=== PATIENT | male | born 1940 | race Two or more races ===

== ENCOUNTER 2017-06-07 21:41 | Inpatient (IN) | payer MEDICARE, OTHER ==
[~2017-06-07] VITALS: Ht 167.6 cm; Wt 59.0 kg
[2017-06-07] MEDS ORDERED: Morphine Sulfate 2mg/ml Inj IVP ONE (22:00)
[2017-06-07] MEDS ORDERED: Ipratropium 0.02% Inh Soln 2.5ml UD HHN ONE (22:00)
[2017-06-07] MEDS ORDERED: Albuterol ud Inhalation HHN ONE (22:00)
[2017-06-07] MEDS ORDERED: Nitroglycerin 2% oint pkt TOPIC ONE (22:00)
[2017-06-07 22:27] LABS: MEAN CORPUSCULAR HEMOGLOBIN 29.7 PG (27.0-31.0); MEAN CORPUSCULAR HGB CONC 32.6 G/DL (32.0-36.0); MEAN CORPUSCULAR VOLUME 91 FL (80-99); MEAN PLATELET VOLUME 12.2 FL (6.5-10.1); PLATELET COUNT 98 K/UL (150-450); RED BLOOD COUNT 4.34 M/UL (4.70-6.10); RED CELL DISTRIBUTION WIDTH 14.3 % (11.6-14.8); WHITE BLOOD COUNT 7.7 K/UL (4.8-10.8)
[2017-06-07 22:28] LABS: PROTHROMBIN TIME 10.4 SEC (9.30-11.50)
[2017-06-07 22:33] LABS: ALANINE AMINOTRANSFERASE 9 U/L (3-41); ALBUMIN/GLOBULIN RATIO 1.5 (1.0-2.7); ANION GAP 6 (5-15); ASPARTATE AMINO TRANSFERASE 14 U/L (5-40); CALCIUM 8.8 mg/dL (8.6-10.2); CARBON DIOXIDE 33 mEQ/L (20-30); CHLORIDE 102 mEQ/L (98-107); HEMOLYSIS 4; POTASSIUM 5.1 mEQ/L (3.4-4.9); SODIUM 141 mEQ/L (135-145); TOTAL PROTEIN 6.5 g/dL (6.6-8.7); TROPONIN I < 0.30 ng/mL (<=0.30)
[2017-06-07] MEDS ORDERED: DEXILANT60 MG ORAL (22:45)
[2017-06-07] MEDS ORDERED: LEXAPRO20 MG ORAL (22:45)
[2017-06-07] MEDS ORDERED: TRAMADOL HCL50 MG ORAL (22:45)
[2017-06-07] MEDS ORDERED: ADVAIR 250-501 EACH INH (22:45)
[2017-06-07] MEDS ORDERED: COLACE100 MG ORAL (22:45)
[2017-06-07 23:05] LABS: BASOPHILS % (MANUAL) 1 % (0-2); EOSINOPHILS % (MANUAL) 2 % (0-3); LYMPHOCYTES % (MANUAL) 23 % (20-45); NEUTROPHILS % (MANUAL) 69 % (45-75); PLATELET MORPHOLOGY NORMAL; TOTAL CELLS COUNTED 100
[2017-06-07 23:06] LABS: BAND NEUTROPHILS % (MANUAL) 0 % (0-8); PLATELET ESTIMATE DECREASED
[2017-06-07] MEDS ORDERED: Nitroglycerin Subl 0.4mg tab (Bottle Of 25) SL PRN (23:30)
[2017-06-07] MEDS ORDERED: DuoNeb 0.5-3(2.5)mg/3ml neb HHN PRN (23:30)
[2017-06-07 23:39] VITALS: BP 120/68
[2017-06-08 00:45] VITALS: BP 106/61
[2017-06-08] MEDS: Morphine Sulfate 4mg/ml Inj IVP PRN ×3 (00:56→18:57)
[2017-06-08 01:00] VITALS: BP 106/55
--- NOTE | 2017-06-08 04:07 | Emergency Room Report ---
History of Present Illness General Chief Complaint: Chest Pain Source: Patient, Family Member Present Illness HPI Patient presents with left-sided chest pain. It's poorly described. He's unable to say anything other than it is painful. The pain is 8-9/10. It's constant and somewhat worse with exertion. It is also worse when he lays down flat. He says he has trouble catching his breath. He does have a history of using inhalers in the past and smoking. He does not have an inhaler at this time. He's heard himself wheezing. Denies any fevers or productive cough. The patient's risk factors of smoking. Alleged prior CAD. No NVD, dysuria, rashes, headache, joint pain. Some anxiety associated with dyspnea and CP. Allergies: Coded Allergies: No Known Allergies (Unverified , 06/07/17) Patient History Past Medical History: see triage record Social History: Reports: smoking Social History Narrative with grandson Reviewed Nursing Documentation: PMH: Agreed, PSxH: Agreed Nursing Documentation-PMH Past Medical History: No History, Except For Hx Cardiac Problems: Yes Hx Hypertension: Yes Hx Pacemaker: No Hx Asthma: No Hx COPD: No Hx Diabetes: No Hx Cancer: No Hx Gastrointestinal Problems: Yes Hx Dialysis: No History Of Psychiatric Problem: No Hx Neurological Problems: Yes Hx Cerebrovascular Accident: No Hx Seizures: No Review of Systems All Other Systems: negative except mentioned in HPI Physical Exam Vital Signs Date Time Temp Pulse Resp B/P Pulse Ox O2 Delivery O2 Flow Rate FiO2 06/07/17 21:50 98.2 86 16 160/80 98 Room Air 06/07/17 21:57 3.0 32 Sp02 EP Interpretation: reviewed, normal General Appearance: well appearing, GCS 15, mild distress Head: normocephalic Eyes: bilateral eye PERRL, bilateral eye normal inspection ENT: moist mucus membranes Neck: supple Respiratory: no accessory muscle use, wheezing, expiration Cardiovascular #1: regular rate, rhythm Cardiovascular #2: 2+ radial (R) Gastrointestinal: normal inspection, normal bowel sounds, non tender, no mass, non-distended, scaphoid Musculoskeletal: back normal, gait/station normal, normal range of motion Neurologic: alert, oriented x3, grossly normal Psychiatric: anxious Skin: normal inspection, warm/dry Medical Decision Making Diagnostic Impression: Primary Impression: Chest pain Qualified Codes: R07.89 - Other chest pain Additional Impression: Bronchospasm ER Course The patient presents with chest pain. He is a poor historian and can't characterize the pain. Reported severe. His risk factors of prior CAD and smoking. The family deny that he's had any previous cardiac procedures. The patient needs to have evaluation for acute myocardial infarction, acute coronary syndrome, pneumonia, COPD exacerbation, pneumothorax amongst others. Evaluation will be with EKG, chest x-ray and labs. The patient will be given aspirin, nitroglycerin, morphine and will be treated with albuterol. EKG without ischemia. CXR with COPD. Labs with negative troponin. Initial improvement with albuterol and nitrates. Patient needs observation with continued troponins and treatment with bronchodilators. Complex patient with poor history. Admit telemetry Dr. Almendarez. Discussed with Dr. Elizondo. (Unable to reach Dr. Negron.) Before going upstairs the patient states pain started to come back again. Morphine was ordered again however due to some technical difficulty with the pharmacy was not administered. Laboratory Tests Test 06/07/17 22:00 White Blood Count 7.7 K/UL (4.8-10.8) Red Blood Count 4.34 M/UL (4.70-6.10) L Hemoglobin 12.9 G/DL (14.2-18.0) L Hematocrit 39.5 % (42.0-52.0) L Mean Corpuscular Volume 91 FL (80-99) Mean Corpuscular Hemoglobin 29.7 PG (27.0-31.0) Mean Corpuscular Hemoglobin Concent 32.6 G/DL (32.0-36.0) Red Cell Distribution Width 14.3 % (11.6-14.8) Platelet Count 98 K/UL (150-450) L Mean Platelet Volume 12.2 FL (6.5-10.1) H Neutrophils (%) (Auto) % (45.0-75.0) Lymphocytes (%) (Auto) % (20.0-45.0) Monocytes (%) (Auto) % (1.0-10.0) Eosinophils (%) (Auto) % (0.0-3.0) Basophils (%) (Auto) % (0.0-2.0) Differential Total Cells Counted 100 Neutrophils % (Manual) 69 % (45-75) Lymphocytes % (Manual) 23 % (20-45) Monocytes % (Manual) 5 % (1-10) Eosinophils % (Manual) 2 % (0-3) Basophils % (Manual) 1 % (0-2) Band Neutrophils 0 % (0-8) Platelet Estimate Decreased L Platelet Morphology Normal Red Blood Cell Morphology Normal Prothrombin Time 10.4 SEC (9.30-11.50) Prothrombin Time INR 1.0 (0.9-1.1) PTT 27 SEC (23-33) Sodium Level 141 mEQ/L (135-145) Potassium Level 5.1 mEQ/L (3.4-4.9) H Chloride Level 102 mEQ/L (98-107) Carbon Dioxide Level 33 mEQ/L (20-30) H Anion Gap 6 (5-15) Blood Urea Nitrogen 29 mg/dL (7-23) H Creatinine 1.0 mg/dL (0.7-1.2) Estimate Glomerular Filtration Rate mL/min (>60) Glucose Level 102 mg/dL (74-106) Calcium Level 8.8 mg/dL (8.6-10.2) Total Bilirubin 0.3 mg/dL (0.0-1.2) Aspartate Amino Transferase (AST) 14 U/L (5-40) Alanine Aminotransferase (ALT) 9 U/L (3-41) Alkaline Phosphatase 45 U/L (40-129) Total Creatine Kinase 74 U/L (38-174) Troponin I < 0.30 ng/mL (<=0.30) Pro-B-Type Natriuretic Peptide 190 pg/mL (0-450) Total Protein 6.5 g/dL (6.6-8.7) L Albumin 3.9 g/dL (3.5-5.2) Globulin 2.6 g/dL Albumin/Globulin Ratio 1.5 (1.0-2.7) EKG Diagnostic Results Rate: bradycardiac ST Segments: no acute changes - RBBB Rhythm Strip Diag. Results EP Interpretation: yes Rhythm: no PVC's, no ectopy, other - Bradycardia Chest X-Ray Diagnostic Results Chest X-Ray Diagnostic Results : Chest X-Ray Ordered: Yes # of Views/Limited/Complete: 1 View Indication: Chest Pain EP Interpretation: Yes Interpretation: no consolidation, no effusion, no pneumothorax, other - COPD Impression: Other Interpreting ER Provider: Electronically signed by Esteban Mock MD Last Vital Signs Date Time Temp Pulse Resp B/P Pulse Ox O2 Delivery O2 Flow Rate FiO2 06/08/17 01:26 97.5 06/08/17 01:03 56 17 106/61 98 Room Air 3.0 32 Status: improved Disposition: ADMITTED INPATIENT Condition: Serious Referrals: NON PHYSICIAN (PCP) Esteban Mock M.D. Jun 08, 2017 04:07
[2017-06-08 07:29] LABS: MEAN CORPUSCULAR HEMOGLOBIN 30.7 PG (27.0-31.0); MEAN CORPUSCULAR HGB CONC 33.4 G/DL (32.0-36.0); MEAN CORPUSCULAR VOLUME 92 FL (80-99); MEAN PLATELET VOLUME 11.2 FL (6.5-10.1); PLATELET COUNT 84 K/UL (150-450); RED BLOOD COUNT 4.03 M/UL (4.70-6.10); RED CELL DISTRIBUTION WIDTH 14.4 % (11.6-14.8); WHITE BLOOD COUNT 6.8 K/UL (4.8-10.8)
[2017-06-08 07:33] LABS: TROPONIN I < 0.30 ng/mL (<=0.30)
[2017-06-08 07:38] LABS: ANION GAP 5 (5-15); CALCIUM 8.5 mg/dL (8.6-10.2); CARBON DIOXIDE 33 mEQ/L (20-30); CHLORIDE 104 mEQ/L (98-107); CREATININE 0.9 mg/dL (0.7-1.2); HEMOLYSIS 6; POTASSIUM 4.3 mEQ/L (3.4-4.9); SODIUM 142 mEQ/L (135-145)
[2017-06-08] MEDS: Aspirin Baby 81mg ORAL SCH (08:31)
[2017-06-08 08:39] LABS: EOSINOPHILS % (MANUAL) 5 % (0-3); LYMPHOCYTES % (MANUAL) 28 % (20-45); NEUTROPHILS % (MANUAL) 62 % (45-75); TOTAL CELLS COUNTED 100
[2017-06-08 08:40] LABS: ANISOCYTOSIS 1+; BAND NEUTROPHILS % (MANUAL) 0 % (0-8); BASOPHILS % (MANUAL) 0 % (0-2); PLATELET ESTIMATE DECREASED; PLATELET MORPHOLOGY NORMAL
[2017-06-08 08:54] VITALS: BP 125/65
--- NOTE | 2017-06-08 09:01 | Cardiac Electrophysiology PN ---
Subjective Subjective [id number] Objective Last 24 Hour Vital Signs Date Time Temp Pulse Resp B/P Pulse Ox O2 Delivery O2 Flow Rate FiO2 06/08/17 08:54 97.9 54 19 125/65 97 Room Air 06/08/17 04:00 45 06/08/17 01:26 97.5 06/08/17 01:03 97.5 56 17 106/61 98 Room Air 3.0 32 06/08/17 01:00 97.8 55 14 106/55 97 Room Air 06/08/17 00:45 56 17 106/61 98 Room Air 06/07/17 23:39 97.5 56 17 120/68 99 Room Air 06/07/17 22:51 98.2 06/07/17 22:12 60 21 100 Nasal Cannula 3.0 32 06/07/17 22:12 169/67 06/07/17 22:00 63 20 Nasal Cannula 3.0 32 06/07/17 21:57 63 20 100 Nasal Cannula 3.0 32 06/07/17 21:57 61 20 Nasal Cannula 3.0 32 06/07/17 21:50 98.2 86 16 160/80 98 Room Air Intake and Output 06/07/17 06/08/17 19:00 07:00 Output Total 0 ml Balance 0 ml Output Urine Total 0 ml # Voids 1 Laboratory Tests Test 06/07/17 22:00 06/08/17 06:40 White Blood Count 7.7 K/UL (4.8-10.8) 6.8 K/UL (4.8-10.8) Red Blood Count 4.34 M/UL (4.70-6.10) L 4.03 M/UL (4.70-6.10) L Hemoglobin 12.9 G/DL (14.2-18.0) L 12.4 G/DL (14.2-18.0) L Hematocrit 39.5 % (42.0-52.0) L 37.1 % (42.0-52.0) L Mean Corpuscular Volume 91 FL (80-99) 92 FL (80-99) Mean Corpuscular Hemoglobin 29.7 PG (27.0-31.0) 30.7 PG (27.0-31.0) Mean Corpuscular Hemoglobin Concent 32.6 G/DL (32.0-36.0) 33.4 G/DL (32.0-36.0) Red Cell Distribution Width 14.3 % (11.6-14.8) 14.4 % (11.6-14.8) Platelet Count 98 K/UL (150-450) L 84 K/UL (150-450) L Mean Platelet Volume 12.2 FL (6.5-10.1) H 11.2 FL (6.5-10.1) H Neutrophils (%) (Auto) % (45.0-75.0) % (45.0-75.0) Lymphocytes (%) (Auto) % (20.0-45.0) % (20.0-45.0) Monocytes (%) (Auto) % (1.0-10.0) % (1.0-10.0) Eosinophils (%) (Auto) % (0.0-3.0) % (0.0-3.0) Basophils (%) (Auto) % (0.0-2.0) % (0.0-2.0) Differential Total Cells Counted 100 100 Neutrophils % (Manual) 69 % (45-75) 62 % (45-75) Lymphocytes % (Manual) 23 % (20-45) 28 % (20-45) Monocytes % (Manual) 5 % (1-10) 5 % (1-10) Eosinophils % (Manual) 2 % (0-3) 5 % (0-3) H Basophils % (Manual) 1 % (0-2) 0 % (0-2) Band Neutrophils 0 % (0-8) 0 % (0-8) Platelet Estimate Decreased L Decreased L Platelet Morphology Normal Normal Red Blood Cell Morphology Normal Prothrombin Time 10.4 SEC (9.30-11.50) Prothromb Time International Ratio 1.0 (0.9-1.1) Activated Partial Thromboplast Time 27 SEC (23-33) Sodium Level 141 mEQ/L (135-145) 142 mEQ/L (135-145) Potassium Level 5.1 mEQ/L (3.4-4.9) H 4.3 mEQ/L (3.4-4.9) Chloride Level 102 mEQ/L (98-107) 104 mEQ/L (98-107) Carbon Dioxide Level 33 mEQ/L (20-30) H 33 mEQ/L (20-30) H Anion Gap 6 (5-15) 5 (5-15) Blood Urea Nitrogen 29 mg/dL (7-23) H 28 mg/dL (7-23) H Creatinine 1.0 mg/dL (0.7-1.2) 0.9 mg/dL (0.7-1.2) Estimat Glomerular Filtration Rate mL/min (>60) mL/min (>60) Glucose Level 102 mg/dL (74-106) 90 mg/dL (74-106) Calcium Level 8.8 mg/dL (8.6-10.2) 8.5 mg/dL (8.6-10.2) L Total Bilirubin 0.3 mg/dL (0.0-1.2) Aspartate Amino Transf (AST/SGOT) 14 U/L (5-40) Alanine Aminotransferase (ALT/SGPT) 9 U/L (3-41) Alkaline Phosphatase 45 U/L (40-129) Total Creatine Kinase 74 U/L (38-174) Troponin I < 0.30 ng/mL (<=0.30) < 0.30 ng/mL (<=0.30) Pro-B-Type Natriuretic Peptide 190 pg/mL (0-450) Total Protein 6.5 g/dL (6.6-8.7) L Albumin 3.9 g/dL (3.5-5.2) Globulin 2.6 g/dL Albumin/Globulin Ratio 1.5 (1.0-2.7) Anisocytosis 1+ OSVALDO ANDERSON Jun 08, 2017 09:01
[2017-06-08] MEDS: D5 1/2NS 1,000 ML IV SCH (11:28)
[2017-06-08 11:56] VITALS: BP 124/66
[2017-06-08] MEDS ORDERED: Potassium Chloride 10 MEQ in D5 1/2NS 1,000 ML IV SCH (12:00)
--- NOTE | 2017-06-08 12:30 | Consultation ---
DATE OF CONSULTATION: 06/08/2017 CARDIOLOGY CONSULTATION REFERRING PHYSICIAN: Isi Almendarez M.D. REASON FOR CONSULTATION: Chest pain. HISTORY OF PRESENT ILLNESS: The patient is a very pleasant 76-year-old [place] gentleman with a history of hypertension. He is not taking any medication currently and presented through the emergency room with left-sided chest pain. The patient also stated that it is worse when he swallows food. The patient is usually under the care of and states that he has had regular echocardiogram and stress test in the past, but not recently. The patient was admitted and noted to be bradycardic with heart rate dropped as low as 44. Cardiology consultation was obtained for further evaluation and management. PAST MEDICAL HISTORY: 1. Hypertension. 2. Arthritis. FAMILY HISTORY: Noncontributory. SOCIAL HISTORY: He lives at home. Does not smoke or drink alcohol. REVIEW OF SYSTEMS: Review of system was performed and was negative other than what was mentioned in the history of present illness. PHYSICAL EXAMINATION: VITAL SIGNS: Blood pressure 160/80, pulse 80, respirations 16, and temperature 98.2 degrees. NECK: Shows no JVD. LUNGS: Clear. CARDIOVASCULAR: Shows regular S1 and S2 with no gallop or murmur. Slightly bradycardic. ABDOMEN: Soft. EXTREMITIES: No pitting edema. DIAGNOSTIC DATA: His EKG showed sinus bradycardia at a rate of 45 with bundle-branch block. LABORATORY DATA: White count 6.8, hemoglobin 12.4, hematocrit 37.1, and platelet count of 84,000. Sodium 142, potassium 4.3, BUN 28, creatinine 0.9, and glucose 90. His troponins are negative x2. BNP is 190. ASSESSMENT AND PLAN: 1. Atypical chest pain. The patient was ruled out for myocardial infarction with serial cardiac enzymes. We will get an echocardiogram to evaluate for ejection fraction and wall motion abnormality and is scheduled the patient for nuclear stress test. Also in view of her worsening pain with food, the patient likely would need esophagogastroduodenoscopy for further evaluation. 2. Hypertension. antihypertensive agent at this time. 3. Bradycardia. Heart rate is in the 40s. sharif. We will check thyroid function tests. 4. Dysphagia, GI evaluation is pending. Thank very much, Dr. Almendarez, for allowing me to participate in the care of this patient. Please do not hesitate to contact me for any questions regarding my evaluation. Олег Obrien M.D. DR: COBY JOB#: [id number] CC:
--- NOTE | 2017-06-08 12:33 | Diagnostic Imaging Report ---
Indication: Dyspnea Comparison: None A single view chest radiograph was obtained. Findings: No definite infiltrate or pulmonary vascular congestion identified. The heart is enlarged. The aorta is mildly enlarged consistent with atherosclerotic vascular disease. The bones are osteopenic. Impression: No acute disease
--- NOTE | 2017-06-08 13:23 | History and Physical ---
History of Present Illness General Date patient seen: Jun 08, 2017 Time patient seen: 13:23 Reason for Hospitalization: Chest Pain Present Illness HPI 76y/o male with pmh of HTN, COPD, depression, GERD who presents with chest pain. Pt states that yesterday he developed severe substernal and L sided chest pain. He is unable to clearly characterize it. He does note that it has a somewhat pleuritic component and is also worsened w/ eating. It is not worsened w/ activity. Associated w/ some SOB. Denies f/c, n/v, d/c, dysuria. Also notes some epigastric pain. Pt also c/o difficulty swallowing liquids and solids as well as pain w/ swallowing for a few days to weeks, gradually worsening. Last EGD/colo >10years ago. H/o tobacco use but denies current use. Denies recent COPD exacerbation. Allergies: Coded Allergies: No Known Allergies (Unverified , 06/07/17) Medication History Scheduled Dexlansoprazole (Dexilant), 60 MG ORAL DAILY, (Reported) Docusate Sodium* (Colace*), 100 MG ORAL DAILY, (Reported) Escitalopram Oxalate* (Lexapro*), 20 MG ORAL DAILY, (Reported) Fluticasone/Salmeterol (Advair 250-50 Diskus), 1 PUFF INH EVERY 12 HOURS, ( Reported) Scheduled PRN Tramadol Hcl* (Ultram*), 100 MG ORAL Q6H PRN for For Pain, (Reported) Patient History Healthcare decision maker Resuscitation status Chemical (Meds Only) Advanced Directive on File No Past Medical/Surgical History Past Medical/Surgical History: (1) COPD (chronic obstructive pulmonary disease) (2) GERD (gastroesophageal reflux disease) (3) Depression (4) HTN (hypertension) Family History Family History: Patient reports no known family medical history. Social History Social History: (1) H/o tobacco abuse Review of Systems Constitutional: Reports: no symptoms Eye: Reports: no symptoms ENT: Reports: no symptoms Respiratory: Reports: shortness of breath Cardiovascular: Reports: chest pain Gastrointestinal: Reports: other - epigastric pain, dysphagia, odynophagia Genitourinary: Reports: no symptoms Musculoskeletal: Reports: no symptoms Skin: Reports: no symptoms Psychiatric: Reports: no symptoms Neurological: Reports: no symptoms Endocrine: Reports: no symptoms Hematologic/Lymphatic: Reports: no symptoms Physical Exam Physical Exam Narrative General: alert, cooperative, no distress, appears stated age Head: normocephalic, without obvious abnormality, atraumatic Eyes: conjunctivae/corneas clear. PERRL, EOM's intact Throat: lips, mucosa, and tongue normal. MMM Neck: supple, symmetrical, trachea midline, and no JVD Lungs: clear to auscultation bilaterally Heart: regular rate and rhythm, S1, S2 normal, no murmur, click, rub or gallop Abdomen: soft, non-tender, non-distended, bowel sounds normal; no masses or organomegaly Extremities: extremities normal, atraumatic, no cyanosis or edema Pulses: 2+ and symmetric Skin: skin color, texture, turgor normal; no rashes or lesions Neurologic: grossly normal, no focal deficits Last 24 Hour Vital Signs Date Time Temp Pulse Resp B/P Pulse Ox O2 Delivery O2 Flow Rate FiO2 06/08/17 11:56 97.7 58 20 124/66 98 Room Air 06/08/17 08:54 97.9 54 19 125/65 97 Room Air 06/08/17 08:30 55 20 Nasal Cannula 3.0 32 06/08/17 08:00 45 06/08/17 04:00 45 06/08/17 01:26 97.5 06/08/17 01:03 97.5 56 17 106/61 98 Room Air 3.0 32 06/08/17 01:00 97.8 55 14 106/55 97 Room Air 06/08/17 00:45 56 17 106/61 98 Room Air 06/07/17 23:39 97.5 56 17 120/68 99 Room Air 06/07/17 22:51 98.2 06/07/17 22:12 60 21 100 Nasal Cannula 3.0 32 06/07/17 22:12 169/67 06/07/17 22:00 63 20 Nasal Cannula 3.0 32 06/07/17 21:57 63 20 100 Nasal Cannula 3.0 32 06/07/17 21:57 61 20 Nasal Cannula 3.0 32 06/07/17 21:50 98.2 86 16 160/80 98 Room Air Intake and Output 06/07/17 06/08/17 19:00 07:00 Output Total 0 ml Balance 0 ml Output Urine Total 0 ml # Voids 1 Laboratory Tests Test 06/07/17 22:00 06/08/17 06:40 White Blood Count 7.7 K/UL (4.8-10.8) 6.8 K/UL (4.8-10.8) Red Blood Count 4.34 M/UL (4.70-6.10) L 4.03 M/UL (4.70-6.10) L Hemoglobin 12.9 G/DL (14.2-18.0) L 12.4 G/DL (14.2-18.0) L Hematocrit 39.5 % (42.0-52.0) L 37.1 % (42.0-52.0) L Mean Corpuscular Volume 91 FL (80-99) 92 FL (80-99) Mean Corpuscular Hemoglobin 29.7 PG (27.0-31.0) 30.7 PG (27.0-31.0) Mean Corpuscular Hemoglobin Concent 32.6 G/DL (32.0-36.0) 33.4 G/DL (32.0-36.0) Red Cell Distribution Width 14.3 % (11.6-14.8) 14.4 % (11.6-14.8) Platelet Count 98 K/UL (150-450) L 84 K/UL (150-450) L Mean Platelet Volume 12.2 FL (6.5-10.1) H 11.2 FL (6.5-10.1) H Neutrophils (%) (Auto) % (45.0-75.0) % (45.0-75.0) Lymphocytes (%) (Auto) % (20.0-45.0) % (20.0-45.0) Monocytes (%) (Auto) % (1.0-10.0) % (1.0-10.0) Eosinophils (%) (Auto) % (0.0-3.0) % (0.0-3.0) Basophils (%) (Auto) % (0.0-2.0) % (0.0-2.0) Differential Total Cells Counted 100 100 Neutrophils % (Manual) 69 % (45-75) 62 % (45-75) Lymphocytes % (Manual) 23 % (20-45) 28 % (20-45) Monocytes % (Manual) 5 % (1-10) 5 % (1-10) Eosinophils % (Manual) 2 % (0-3) 5 % (0-3) H Basophils % (Manual) 1 % (0-2) 0 % (0-2) Band Neutrophils 0 % (0-8) 0 % (0-8) Platelet Estimate Decreased L Decreased L Platelet Morphology Normal Normal Red Blood Cell Morphology Normal Prothrombin Time 10.4 SEC (9.30-11.50) Prothromb Time International Ratio 1.0 (0.9-1.1) Activated Partial Thromboplast Time 27 SEC (23-33) Sodium Level 141 mEQ/L (135-145) 142 mEQ/L (135-145) Potassium Level 5.1 mEQ/L (3.4-4.9) H 4.3 mEQ/L (3.4-4.9) Chloride Level 102 mEQ/L (98-107) 104 mEQ/L (98-107) Carbon Dioxide Level 33 mEQ/L (20-30) H 33 mEQ/L (20-30) H Anion Gap 6 (5-15) 5 (5-15) Blood Urea Nitrogen 29 mg/dL (7-23) H 28 mg/dL (7-23) H Creatinine 1.0 mg/dL (0.7-1.2) 0.9 mg/dL (0.7-1.2) Estimat Glomerular Filtration Rate mL/min (>60) mL/min (>60) Glucose Level 102 mg/dL (74-106) 90 mg/dL (74-106) Calcium Level 8.8 mg/dL (8.6-10.2) 8.5 mg/dL (8.6-10.2) L Total Bilirubin 0.3 mg/dL (0.0-1.2) Aspartate Amino Transf (AST/SGOT) 14 U/L (5-40) Alanine Aminotransferase (ALT/SGPT) 9 U/L (3-41) Alkaline Phosphatase 45 U/L (40-129) Total Creatine Kinase 74 U/L (38-174) Troponin I < 0.30 ng/mL (<=0.30) < 0.30 ng/mL (<=0.30) Pro-B-Type Natriuretic Peptide 190 pg/mL (0-450) Total Protein 6.5 g/dL (6.6-8.7) L Albumin 3.9 g/dL (3.5-5.2) Globulin 2.6 g/dL Albumin/Globulin Ratio 1.5 (1.0-2.7) Anisocytosis 1+ Free Thyroxine 1.37 ng/dL (0.86-1.85) Height (Feet): 5 Height (Inches): 8.00 Weight (Pounds): 130 Medications Current Medications Medications (Trade) Dose Ordered Sig/Chris Route PRN Reason Start Time Stop Time Status Last Admin Dose Admin Acetaminophen (Tylenol) 650 mg Q4H PRN ORAL Mild Pain (Pain Scale 1-3) 06/07/17 23:30 07/07/17 23:29 Albuterol/ Ipratropium (DuoNeb 0.5-3(2.5)mg/3ml) 3 ml Q4HR PRN HHN Shortness of Breath 06/07/17 23:30 06/12/17 23:29 Aspirin (ASA) 81 mg DAILY ORAL 06/08/17 09:00 07/08/17 08:59 06/08/17 08:31 Bisacodyl (Dulcolax) 10 mg ONCE ONCE ORAL 06/08/17 16:00 06/08/17 16:01 UNV Dextrose (Dextrose 50%) STAT PRN IV Hypoglycemia 06/07/17 23:30 07/07/17 23:29 Dextrose/Sodium Chloride (D5 0.45% NS) 1,000 ml @ 75 mls/hr [id number] IV 06/08/17 11:30 07/08/17 11:29 06/08/17 11:28 Morphine Sulfate 4 mg 4 mg Q4H PRN IVP For Pain 06/08/17 00:30 06/15/17 00:29 06/08/17 07:52 Nitroglycerin (Ntg) 0.4 mg Q5M PRN SL Prn Chest Pain 06/07/17 23:30 07/07/17 23:29 Polyethylene Glycol/ Electrolytes (Nulytely) 4,000 ml ONCE ONCE ORAL 06/08/17 16:00 06/08/17 16:01 UNV Sodium Phosphate (Fleet's Sodium Phosl Enema) 133 ml ONCE ONCE RECTAL 06/08/17 23:00 06/08/17 23:01 UNV Assessment/Plan Problem List: (1) Chest pain ICD Codes: R07.9 - Chest pain, unspecified SNOMED: 50179136 Qualifiers: Qualified Codes: R07.89 - Other chest pain (2) Odynophagia ICD Codes: R13.10 - Dysphagia, unspecified SNOMED: 11793084 (3) Dysphagia ICD Codes: R13.10 - Dysphagia, unspecified SNOMED: 04790274, 586011818 (4) COPD (chronic obstructive pulmonary disease) ICD Codes: J44.9 - Chronic obstructive pulmonary disease, unspecified SNOMED: 74489739 (5) Depression ICD Codes: F32.9 - Major depressive disorder, single episode, unspecified SNOMED: 24816069 (6) GERD (gastroesophageal reflux disease) ICD Codes: K21.9 - Gastro-esophageal reflux disease without esophagitis SNOMED: 029421839 Status: stable Assessment/Plan Admit inpt Cardiology consulted Trend trop/EKG Check TTE Plan for nuclear stress test per cardiology GI consulted given dysphagia, odynophagia Plan for EGD/colo tomorrow per GI PPI Cont home lexapro Cont home Advair Pain control, bowel regimen Supportive care DVT Prophylaxis: SCD, HSQ Code Status: Full Hospital Classification Declaration: Based on this initial evaluation, and depending on the patient's clinical course, I anticipate that this patient will require hospitalization for 2-3 days for chest pain, dysphagia/odynophagia and close respiratory/hemodynamic monitoring. Disposition: Once the patient is stable to leave the hospital, I anticipate the patient will likely be discharged to the following environment: home with HH vs SNF I spent 70 minutes on this patient's case, and 37 minutes were dedicated to counseling and/or care coordination. Discussed with patient/family, nursing staff, SW/CM, cardiology, GI regarding clinical status, treatment course, and disposition planning. Time of note may not reflect time of encounter. Jim Harrison M.D. Jun 08, 2017 13:23
[2017-06-08 16:00] VITALS: BP 140/80
[2017-06-08] MEDS ORDERED: Bisacodyl EC 5mg tab ORAL ONE (16:00)
[2017-06-08] MEDS ORDERED: Nulytely 4L ORAL ONE (16:00)
--- NOTE | 2017-06-08 16:03 | GI Initial Consult Note ---
Reyes,Ayanna Adam N.PPearl 06/08/17 1603: History of Present Illness General Date patient seen: Jun 08, 2017 Time patient seen: 10:00 Reason for Hospitalization: Chest Pain Referring physician: TNAIA MONTGOMERY Reason for Consultation: DYSPHAGIA Present Illness HPI Patient presents with left-sided chest pain. It's poorly described. He's unable to say anything other than it is painful. The pain is 8-9/10. It's constant and somewhat worse with exertion. It is also worse when he lays down flat. He says he has trouble catching his breath. He does have a history of using inhalers in the past and smoking. He does not have an inhaler at this time. He sort himself wheezing. Denies any fevers or productive cough. The patient's risk factors of smoking. GI Consult. HPI as noted above. GI consulted for dysphagia. Pt seen on floor , awake A&Ox4 NAD with no active s/sx of N/V/D. Presents today with c/o of odynophagia and mild anemia. Unknown history of endoscopic procedures. Home Meds Reported Medications Tramadol Hcl* (ULTRAM*) 50 Mg Tablet, 100 MG ORAL Q6H Y for For Pain, #30 TAB 0 Refills 06/07/17 Dexlansoprazole (Dexilant) 60 Mg Cap.bp, 60 MG ORAL DAILY, CAP 06/07/17 Fluticasone/Salmeterol (Advair 250-50 Diskus) 1 Each Blst.w.dev, 1 PUFF INH EVERY 12 HOURS, EA 06/07/17 Escitalopram Oxalate* (LEXAPRO*) 20 Mg Tablet, 20 MG ORAL DAILY, TAB 06/07/17 Docusate Sodium* (COLACE*) 100 Mg Capsule, 100 MG ORAL DAILY, CAP 06/07/17 Med list reviewed/reconciled: Yes Allergies: Coded Allergies: No Known Allergies (Unverified , 06/07/17) Patient History History Provided By: Patient, Family Member, Medical Record PMH Narrative Past Medical History: see triage record Social History: Reports: smoking Social History Narrative with grandson Reviewed Nursing Documentation: PMH: Agreed, PSxH: Agreed Nursing Documentation-PMH Past Medical History: No History, Except For Hx Cardiac Problems: Yes Hx Hypertension: Yes Hx Pacemaker: No Hx Asthma: No Hx COPD: No Hx Diabetes: No Hx Cancer: No Hx Gastrointestinal Problems: Yes Hx Dialysis: No History Of Psychiatric Problem: No Hx Neurological Problems: Yes Hx Cerebrovascular Accident: No Hx Seizures: No ER ROS - General Social History: Reports: smoking Review of Systems All Other Systems: negative except mentioned in HPI Physical Exam Vital Signs Date Time Temp Pulse Resp B/P Pulse Ox O2 Delivery O2 Flow Rate FiO2 06/07/17 21:50 98.2 86 16 160/80 98 Room Air 06/07/17 21:57 3.0 32 Sp02 EP Interpretation: reviewed Labs Laboratory Tests Test 06/07/17 22:00 06/08/17 06:40 06/08/17 15:30 White Blood Count 7.7 K/UL (4.8-10.8) 6.8 K/UL (4.8-10.8) Red Blood Count 4.34 M/UL (4.70-6.10) L 4.03 M/UL (4.70-6.10) L Hemoglobin 12.9 G/DL (14.2-18.0) L 12.4 G/DL (14.2-18.0) L Hematocrit 39.5 % (42.0-52.0) L 37.1 % (42.0-52.0) L Mean Corpuscular Volume 91 FL (80-99) 92 FL (80-99) Mean Corpuscular Hemoglobin 29.7 PG (27.0-31.0) 30.7 PG (27.0-31.0) Mean Corpuscular Hemoglobin Concent 32.6 G/DL (32.0-36.0) 33.4 G/DL (32.0-36.0) Red Cell Distribution Width 14.3 % (11.6-14.8) 14.4 % (11.6-14.8) Platelet Count 98 K/UL (150-450) L 84 K/UL (150-450) L Mean Platelet Volume 12.2 FL (6.5-10.1) H 11.2 FL (6.5-10.1) H Neutrophils (%) (Auto) % (45.0-75.0) % (45.0-75.0) Lymphocytes (%) (Auto) % (20.0-45.0) % (20.0-45.0) Monocytes (%) (Auto) % (1.0-10.0) % (1.0-10.0) Eosinophils (%) (Auto) % (0.0-3.0) % (0.0-3.0) Basophils (%) (Auto) % (0.0-2.0) % (0.0-2.0) Differential Total Cells Counted 100 100 Neutrophils % (Manual) 69 % (45-75) 62 % (45-75) Lymphocytes % (Manual) 23 % (20-45) 28 % (20-45) Monocytes % (Manual) 5 % (1-10) 5 % (1-10) Eosinophils % (Manual) 2 % (0-3) 5 % (0-3) H Basophils % (Manual) 1 % (0-2) 0 % (0-2) Band Neutrophils 0 % (0-8) 0 % (0-8) Platelet Estimate Decreased L Decreased L Platelet Morphology Normal Normal Red Blood Cell Morphology Normal Prothrombin Time 10.4 SEC (9.30-11.50) Prothromb Time International Ratio 1.0 (0.9-1.1) Activated Partial Thromboplast Time 27 SEC (23-33) Sodium Level 141 mEQ/L (135-145) 142 mEQ/L (135-145) Potassium Level 5.1 mEQ/L (3.4-4.9) H 4.3 mEQ/L (3.4-4.9) Chloride Level 102 mEQ/L (98-107) 104 mEQ/L (98-107) Carbon Dioxide Level 33 mEQ/L (20-30) H 33 mEQ/L (20-30) H Anion Gap 6 (5-15) 5 (5-15) Blood Urea Nitrogen 29 mg/dL (7-23) H 28 mg/dL (7-23) H Creatinine 1.0 mg/dL (0.7-1.2) 0.9 mg/dL (0.7-1.2) Estimat Glomerular Filtration Rate mL/min (>60) mL/min (>60) Glucose Level 102 mg/dL (74-106) 90 mg/dL (74-106) Calcium Level 8.8 mg/dL (8.6-10.2) 8.5 mg/dL (8.6-10.2) L Total Bilirubin 0.3 mg/dL (0.0-1.2) Aspartate Amino Transf (AST/SGOT) 14 U/L (5-40) Alanine Aminotransferase (ALT/SGPT) 9 U/L (3-41) Alkaline Phosphatase 45 U/L (40-129) Total Creatine Kinase 74 U/L (38-174) Troponin I < 0.30 ng/mL (<=0.30) < 0.30 ng/mL (<=0.30) Pending Pro-B-Type Natriuretic Peptide 190 pg/mL (0-450) Total Protein 6.5 g/dL (6.6-8.7) L Albumin 3.9 g/dL (3.5-5.2) Globulin 2.6 g/dL Albumin/Globulin Ratio 1.5 (1.0-2.7) Anisocytosis 1+ Free Thyroxine 1.37 ng/dL (0.86-1.85) General Appearance: well appearing, no apparent distress, alert, thin Head: normocephalic EENT: PERRL/EOMI, normal ENT inspection Neck: supple Respiratory: normal breath sounds, no respiratory distress Cardiovascular: normal rate Gastrointestinal: normal inspection, non tender, soft Rectal: deferred Genitourinary: no CVA tenderness Musculoskeletal: normal inspection, back normal Neurologic: normal inspection, alert, oriented x3, responsive Psychiatric: normal inspection, judgement/insight normal, memory normal Skin: normal inspection, normal color, no rash, warm/dry Lymphatic: normal inspection, no adenopathy Current Medications Current Medications Medications (Trade) Dose Ordered Sig/Chris Route PRN Reason Start Time Stop Time Status Last Admin Dose Admin Acetaminophen (Tylenol) 650 mg Q4H PRN ORAL Mild Pain (Pain Scale 1-3) 06/07/17 23:30 07/07/17 23:29 Albuterol/ Ipratropium (DuoNeb 0.5-3(2.5)mg/3ml) 3 ml Q4HR PRN HHN Shortness of Breath 06/07/17 23:30 06/12/17 23:29 Aspirin (ASA) 81 mg DAILY ORAL 06/08/17 09:00 07/08/17 08:59 06/08/17 08:31 Bisacodyl (Dulcolax) 10 mg ONCE ONCE ORAL 06/08/17 16:00 06/08/17 16:01 06/08/17 15:40 Dextrose (Dextrose 50%) STAT PRN IV Hypoglycemia 06/07/17 23:30 07/07/17 23:29 Dextrose/Sodium Chloride (D5 0.45% NS) 1,000 ml @ 75 mls/hr [id number] IV 06/08/17 11:30 07/08/17 11:29 06/08/17 11:28 Morphine Sulfate 4 mg 4 mg Q4H PRN IVP For Pain 06/08/17 00:30 06/15/17 00:29 06/08/17 07:52 Nitroglycerin (Ntg) 0.4 mg Q5M PRN SL Prn Chest Pain 06/07/17 23:30 07/07/17 23:29 Pantoprazole (Protonix) 40 mg ACBREAKFAST ORAL 06/08/17 15:00 07/08/17 14:59 06/08/17 15:00 Polyethylene Glycol/ Electrolytes (Nulytely) 4,000 ml ONCE ONCE ORAL 06/08/17 16:00 06/08/17 16:01 06/08/17 15:39 Sodium Phosphate (Fleet's Sodium Phosl Enema) 133 ml ONCE ONCE RECTAL 06/08/17 23:00 06/08/17 23:01 GI: Plan Problems: (1) Dysphagia (2) Odynophagia (3) Colonoscopy planned Plan ST eval reviewed >> esophagea dysmotility EGD/Colonoscopy scheduled for tomorrow. - CLD, NPO @ [facility]. - hold all blood thinners tonight - consider NGT if patient cannot take prep. ppi anemia work up fu labs Discussed with Dr. Camejo. Thank you for referring this patient, we will follow. GOPAL CAMEJO 06/16/17 0944: History of Present Illness General Reason for Hospitalization: Chest Pain Present Illness Home Meds Reported Medications Tramadol Hcl* (ULTRAM*) 50 Mg Tablet, 100 MG ORAL Q6H Y for For Pain, #30 TAB 0 Refills 06/07/17 Dexlansoprazole (Dexilant) 60 Mg Cap.bp, 60 MG ORAL DAILY, CAP 06/07/17 Fluticasone/Salmeterol (Advair 250-50 Diskus) 1 Each Blst.w.dev, 1 PUFF INH EVERY 12 HOURS, EA 06/07/17 Escitalopram Oxalate* (LEXAPRO*) 20 Mg Tablet, 20 MG ORAL DAILY, TAB 06/07/17 Docusate Sodium* (COLACE*) 100 Mg Capsule, 100 MG ORAL DAILY, CAP 06/07/17 Allergies: Coded Allergies: No Known Allergies (Unverified , 06/07/17) GI: Plan Plan The patient was seen and examined at bedside and all new and available data was reviewed in the patients chart. I agree with the above findings, impression and plan. (Patient seen earlier today. Signature stamp does not reflect patient encounter time.). -Gopal Reyes,[facility] Adam N.P. Jun 08, 2017 16:03 GOPAL CAMEJO Jun 16, 2017 09:44
[2017-06-08 16:06] LABS: TROPONIN I < 0.30 ng/mL (<=0.30)
[2017-06-08 20:00] VITALS: BP 146/66
[2017-06-08] MEDS ORDERED: Fleet's Enema 133ml RECTAL ONE (23:00)
[2017-06-09] VITALS (9 sets, daily range): BP systolic 139–164; BP diastolic 69–87
[2017-06-09] MEDS: D5 1/2NS 1,000 ML IV SCH ×2 (00:50→14:10)
[2017-06-09] MEDS: Morphine Sulfate 4mg/ml Inj IVP PRN ×2 (05:56→16:20)
--- NOTE | 2017-06-09 06:18 | Anethesia Preoperative Eval ---
Anesthesia Pre-op PMH/ROS General Date of Evaluation: Jun 09, 2017 Time of Evaluation: 06:18 Anesthesiologist: iam ASA Score: ASA 3 Mallampati Score Class I : Soft palate, uvula, fauces, pillars visible Class II: Soft palate, uvula, fauces visible Class III: Soft palate, base of uvula visible Class IV: Only hard plate visible Mallampati Classification: Class II Surgeon: sonu Diagnosis: gerd Surgical Procedure: egd/colonoscopy Anesthesia History: none Social History: smoking - nonsmoker Family History: no anesthesia problems Allergies: Coded Allergies: No Known Allergies (Unverified , 06/07/17) Medications: see eMAR Past Medical History Cardiovascular: Reports: HTN Gastrointestinal/Genitourinary: Reports: GERD Neurologic/Psychiatric: Reports: depression/anxiety Anesthesia Pre-op Phys. Exam Physician Exam Last Vital Signs Date Time Temp Pulse Resp B/P Pulse Ox O2 Delivery O2 Flow Rate FiO2 06/09/17 04:00 52 06/09/17 04:00 97.5 18 140/79 96 Room Air 3.0 32 Constitutional: NAD Neurologic: CN 2-12 intact Cardiovascular: RRR Respiratory: CTA Gastrointestinal: S/NT/ND Airway Exam Mallampati Score: Class II MO: full Neck: supple TMD: 2fb ROM: limited Teeth: intact Anesthesia Pre-op A/P Labs Hematology Test 06/08/17 06:40 White Blood Count 6.8 K/UL (4.8-10.8) Red Blood Count 4.03 M/UL (4.70-6.10) L Hemoglobin 12.4 G/DL (14.2-18.0) L Hematocrit 37.1 % (42.0-52.0) L Mean Corpuscular Volume 92 FL (80-99) Mean Corpuscular Hemoglobin 30.7 PG (27.0-31.0) Mean Corpuscular Hemoglobin Concent 33.4 G/DL (32.0-36.0) Red Cell Distribution Width 14.4 % (11.6-14.8) Platelet Count 84 K/UL (150-450) L Mean Platelet Volume 11.2 FL (6.5-10.1) H Neutrophils (%) (Auto) % (45.0-75.0) Lymphocytes (%) (Auto) % (20.0-45.0) Monocytes (%) (Auto) % (1.0-10.0) Eosinophils (%) (Auto) % (0.0-3.0) Basophils (%) (Auto) % (0.0-2.0) Differential Total Cells Counted 100 Neutrophils % (Manual) 62 % (45-75) Lymphocytes % (Manual) 28 % (20-45) Monocytes % (Manual) 5 % (1-10) Eosinophils % (Manual) 5 % (0-3) H Basophils % (Manual) 0 % (0-2) Band Neutrophils 0 % (0-8) Platelet Estimate Decreased L Platelet Morphology Normal Anisocytosis 1+ Chemistry Test 06/08/17 06:40 06/08/17 15:30 Sodium Level 142 mEQ/L (135-145) Potassium Level 4.3 mEQ/L (3.4-4.9) Chloride Level 104 mEQ/L (98-107) Carbon Dioxide Level 33 mEQ/L (20-30) H Anion Gap 5 (5-15) Blood Urea Nitrogen 28 mg/dL (7-23) H Creatinine 0.9 mg/dL (0.7-1.2) Estimat Glomerular Filtration Rate mL/min (>60) Glucose Level 90 mg/dL (74-106) Calcium Level 8.5 mg/dL (8.6-10.2) L Troponin I < 0.30 ng/mL (<=0.30) < 0.30 ng/mL (<=0.30) Free Thyroxine 1.37 ng/dL (0.86-1.85) Risk Assessment & Plan Assessment: asa3 Plan: mac Status Change Before Surgery: No Pre-Antibiotics Drug: JEN Soriano Jun 09, 2017 06:18
[2017-06-09] MEDS ORDERED: Advair 250/50 Inhaler - 14 dose INH SCH (09:00)
[2017-06-09 09:10] LABS: MEAN CORPUSCULAR HEMOGLOBIN 29.3 PG (27.0-31.0); MEAN CORPUSCULAR HGB CONC 32.1 G/DL (32.0-36.0); MEAN CORPUSCULAR VOLUME 91 FL (80-99); MEAN PLATELET VOLUME 9.4 FL (6.5-10.1); PLATELET COUNT 90 K/UL (150-450); RED BLOOD COUNT 4.57 M/UL (4.70-6.10); RED CELL DISTRIBUTION WIDTH 13.8 % (11.6-14.8); WHITE BLOOD COUNT 5.5 K/UL (4.8-10.8)
[2017-06-09 09:15] LABS: PROTHROMBIN TIME 10.8 SEC (9.30-11.50)
[2017-06-09 09:25] LABS: CHOLESTEROL/HDL RATIO 1.9 (3.3-4.4)
[2017-06-09 09:27] LABS: HEMOLYSIS 4; IRON 103 ug/dL (59-158); TOTAL IRON BINDING CAPACITY 295 ug/dL (250-400)
[2017-06-09 09:32] LABS: THYROID STIMULATING HORMONE 0.898 uIU/mL (0.300-4.500)
[2017-06-09 09:40] LABS: ANION GAP 9 (5-15); CALCIUM 8.3 mg/dL (8.6-10.2); CARBON DIOXIDE 31 mEQ/L (20-30); CHLORIDE 99 mEQ/L (98-107); CREATININE 0.8 mg/dL (0.7-1.2); HEMOLYSIS 5; POTASSIUM 4.3 mEQ/L (3.4-4.9); SODIUM 139 mEQ/L (135-145)
[2017-06-09 09:41] LABS: BAND NEUTROPHILS % (MANUAL) 0 % (0-8); BASOPHILS % (MANUAL) 0 % (0-2); EOSINOPHILS % (MANUAL) 8 % (0-3); LYMPHOCYTES % (MANUAL) 17 % (20-45); NEUTROPHILS % (MANUAL) 68 % (45-75); PLATELET ESTIMATE DECREASED; PLATELET MORPHOLOGY NORMAL; TOTAL CELLS COUNTED 100
[2017-06-09] MEDS: Aspirin Baby 81mg ORAL SCH ×2 (09:57→16:19)
[2017-06-09] MEDS ORDERED: D5 1/2NS 1000ml IV ONE (10:24)
--- NOTE | 2017-06-09 11:42 | Pre-Procedure Note/Attestation ---
Pre-Procedure Note/Attestation Complete Prior to Procedure Planned Procedure: not applicable Procedure Narrative: esophagogastroduodenoscopy and colonoscopy Indications for Procedure Pre-Operative Diagnosis: abd pain, wt loss, dysphagia Attestation I attest that I discussed the nature of the procedure; its benefits; risks and complications; and alternatives (and the risks and benefits of such alternatives ), prior to the procedure, with the patient (or the patient's legal senior outside sales representative). I attest that, if there was a reasonable possibility of needing a blood transfusion, the patient (or the patient's legal senior outside sales representative) was given the [facility] standardized written summary, pursuant to the Deion Becky Blood Safety Act ([place] Health and Safety Code # 1645, as amended). I attest that I re-evaluated the patient just prior to the surgery and that there has been no change in the patient's H&P, except as documented below: TREVON TOURE Jun 09, 2017 11:42
[2017-06-09] MEDS ORDERED: NS 550ML IV ONE (11:50)
[2017-06-09] MEDS ORDERED: Midazolam 2mg/2ml Inj IVP PRN (12:30)
[2017-06-09] MEDS ORDERED: Atropine Inj 1mg/10ml Syr IV PRN (12:30)
[2017-06-09] MEDS ORDERED: Hydromorphone 0.5mg/0.5ml inj IVP PRN (12:30)
[2017-06-09] MEDS ORDERED: DiphenhydrAMINE 50mg/ml Inj IVP PRN (12:30)
--- NOTE | 2017-06-09 12:49 | Immediate Post-Op Evaluation ---
Immediate Post-Op Evalulation Immediate Post-Op Evalulation Procedure: egd/colonoscopy Date of Evaluation: Jun 09, 2017 Time of Evaluation: 12:52 IV Fluids: 0.9ns 350ml Blood Products: none Estimated Blood Loss: negligible Blood Pressure Systolic: 164 Blood Pressure Diastolic: 77 Pulse Rate: 55 Respiratory Rate: 18 O2 Sat by Pulse Oximetry: 100 Temperature (Fahrenheit): 98.4 Pain Score (1-10): 0 Nausea: No Vomiting: No Complications none Patient Status: awake, reacts, patent Hydration Status: adequate Drug: JEN Soriano Jun 09, 2017 12:49
--- NOTE | 2017-06-09 12:56 | Endoscopy Procedure Note ---
Endoscopy Procedure Note Indication for Procedure: wt loss, dysphagia Procedures Performed: EGD, colonoscopy Operative Findings/Diagnosis: 3 colon polyps, diverticulosis Specimen: yes Pt Tolerated Procedure Well: Yes Estimated Blood Loss: none Anesthesiologist: phil layne Anesthesia: MAC Implant(s) used?: No 50 yrs or older w/o bx or poly: Not Applicable 10yrs. F/U not recommended: Not Applicable TREVON TOURE Jun 09, 2017 12:56
--- NOTE | 2017-06-09 13:33 | 48 Hour Post Anesthesia Eval ---
Post Anesthesia Evaluation Procedure: egd/colonoscopy Date of Evaluation: Jun 09, 2017 Time of Evaluation: 13:25 Blood Pressure Systolic: 153 0: 72 Pulse Rate: 49 Respiratory Rate: 18 Temperature (Fahrenheit): 97.6 O2 Sat by Pulse Oximetry: 100 Airway: patent Nausea: No Vomiting: No Pain Intensity: 0 Hydration Status: adequate Cardiopulmonary Status: stable Mental Status/LOC: patient returned to baseline Post-Anesthesia Complications: none Follow-up care needed: N/A JEN PERSAUD Jun 09, 2017 13:33
[2017-06-09] MEDS ORDERED: Adenosine Inj IVP ONE (14:40)
--- NOTE | 2017-06-09 14:49 | Cardiac Electrophysiology PN ---
Assessment/Plan Assessment/Plan 1. Atypical chest pain. The patient was ruled out for myocardial infarction with serial cardiac enzymes. Echocardiogram showed Nl EF. Nuclear stress test done today results pending. EGD today by Dr. Camejo showed distal esophageal hematoma vs mass. 2. Hypertension. Start Norvasc 5 mg po daily. 3. Bradycardia. Now in 70s. 4. Dysphagia, GI evaluation is pending. DW family and RN Subjective Subjective Comfortable in NAD.Had EGD and colonoscopy today. Is undergoing stress test today. Objective Last 24 Hour Vital Signs Date Time Temp Pulse Resp B/P Pulse Ox O2 Delivery O2 Flow Rate FiO2 06/09/17 13:37 100 06/09/17 13:33 49 18 06/09/17 13:04 97.6 49 20 153/72 100 Room Air 06/09/17 12:50 47 20 154/69 100 Room Air 06/09/17 12:49 55 18 100 06/09/17 12:45 50 20 160/70 100 Nasal Cannula 2.0 06/09/17 12:40 97.6 51 20 164/77 100 Nasal Cannula 2.0 06/09/17 12:00 97.7 58 19 152/87 96 Room Air 06/09/17 12:00 54 06/09/17 08:29 52 20 Nasal Cannula 3.0 32 06/09/17 08:29 99 Nasal Cannula 3.0 32 06/09/17 08:29 Nasal Cannula 3.0 32 06/09/17 08:00 97.5 55 20 155/86 99 Nasal Cannula 2.5 06/09/17 08:00 51 06/09/17 04:00 52 06/09/17 04:00 97.5 61 18 140/79 96 Room Air 3.0 32 06/09/17 00:00 97.5 58 18 142/86 95 Room Air 3.0 32 06/09/17 00:00 50 06/08/17 20:00 97.5 58 18 146/66 95 Room Air 06/08/17 20:00 48 06/08/17 19:50 97 Nasal Cannula 3.0 32 06/08/17 19:50 Nasal Cannula 3.0 32 06/08/17 19:50 56 20 Nasal Cannula 3.0 32 06/08/17 16:00 42 06/08/17 16:00 97.5 60 20 140/80 100 Nasal Cannula 2.5 Intake and Output 06/08/17 06/09/17 19:00 07:00 Intake Total 375 ml 75 ml Output Total 14 ml Balance 375 ml 61 ml Intake IV Total 375 ml 75 ml Output Urine Total 14 ml # Voids 6 # Bowel Movements 6 Laboratory Tests Test 06/08/17 15:30 06/09/17 08:30 Troponin I < 0.30 ng/mL (<=0.30) White Blood Count 5.5 K/UL (4.8-10.8) Red Blood Count 4.57 M/UL (4.70-6.10) L Hemoglobin 13.4 G/DL (14.2-18.0) L Hematocrit 41.7 % (42.0-52.0) L Mean Corpuscular Volume 91 FL (80-99) Mean Corpuscular Hemoglobin 29.3 PG (27.0-31.0) Mean Corpuscular Hemoglobin Concent 32.1 G/DL (32.0-36.0) Red Cell Distribution Width 13.8 % (11.6-14.8) Platelet Count 90 K/UL (150-450) L Mean Platelet Volume 9.4 FL (6.5-10.1) Neutrophils (%) (Auto) % (45.0-75.0) Lymphocytes (%) (Auto) % (20.0-45.0) Monocytes (%) (Auto) % (1.0-10.0) Eosinophils (%) (Auto) % (0.0-3.0) Basophils (%) (Auto) % (0.0-2.0) Differential Total Cells Counted 100 Neutrophils % (Manual) 68 % (45-75) Lymphocytes % (Manual) 17 % (20-45) L Monocytes % (Manual) 7 % (1-10) Eosinophils % (Manual) 8 % (0-3) H Basophils % (Manual) 0 % (0-2) Band Neutrophils 0 % (0-8) Platelet Estimate Decreased L Platelet Morphology Normal Red Blood Cell Morphology Normal Prothrombin Time 10.8 SEC (9.30-11.50) Prothromb Time International Ratio 1.0 (0.9-1.1) Activated Partial Thromboplast Time 30 SEC (23-33) Sodium Level 139 mEQ/L (135-145) Potassium Level 4.3 mEQ/L (3.4-4.9) Chloride Level 99 mEQ/L (98-107) Carbon Dioxide Level 31 mEQ/L (20-30) H Anion Gap 9 (5-15) Blood Urea Nitrogen 17 mg/dL (7-23) Creatinine 0.8 mg/dL (0.7-1.2) Estimat Glomerular Filtration Rate mL/min (>60) Glucose Level 87 mg/dL (74-106) Calcium Level 8.3 mg/dL (8.6-10.2) L Iron Level 103 ug/dL (59-158) Total Iron Binding Capacity 295 ug/dL (250-400) Percent Iron Saturation 35 % (15-50) Unsaturated Iron Binding 192 ug/dL (112-346) Triglycerides Level 51 mg/dL (< 150) Cholesterol Level 108 mg/dL (< 200) LDL Cholesterol 40 mg/dL (60-99) L HDL Cholesterol 58 mg/dL (> 60) Cholesterol/HDL Ratio 1.9 (3.3-4.4) L Thyroid Stimulating Hormone (TSH) 0.898 uIU/mL (0.300-4.500) Objective NECK: Shows no JVD. LUNGS: Clear. CARDIOVASCULAR: Shows regular S1 and S2 with no gallop or murmur. Slightly bradycardic. ABDOMEN: Soft. EXTREMITIES: No pitting edema. OSVALDO ANDERSON Jun 09, 2017 14:49
[2017-06-09] MEDS ORDERED: Propofol 10mg/ml 20ml IV ONE (19:13)
[2017-06-09] MEDS ORDERED: Lidocaine 1% MPF 10mg/ml 5ml ONE (19:13)
--- NOTE | 2017-06-09 22:15 | Procedure Note ---
DATE OF PROCEDURE: 06/09/2017 SURGEON: Gopal Camejo M.D. PROCEDURE: Upper endoscopy with biopsy and colonoscopy with snare polypectomy and biopsy. ANESTHESIOLOGIST: Jocelyn Vee M.D. INSTRUMENT: Olympus adult flexible upper endoscope and colonoscope. INDICATION: Dysphagia, anemia, abdominal pain, and weight loss. REASON FOR PROCEDURE: The procedure, risks, benefits, and possible consequences, including hemorrhage, aspiration, perforation and infection, and alternative treatments, were explained to the patient/legal guardian by Dr. Gopal Camejo and the patient/legal guardian understood and accepted these risks. DESCRIPTION OF PROCEDURE: After informed consent was obtained and the patient was adequately sedated, Olympus upper endoscope was advanced from mouth into the second portion of duodenum and retroflexion was performed in the stomach. In the esophagus in almost lower medial portion of the esophagus, there was a linear lesion with some blood clot sitting on it. I am not sure if this is a hematoma from the G-tube. Given the possibility of the vessel, we did not want to biopsy this lesion. But we biopsied the proximal esophagus, this looked inflamed. The esophagus at the area of the GE junction looked normal. Then, the scope was advanced into the stomach. The stomach showed evidence of diffuse gastritis. Random biopsy from antrum was obtained to rule out H. pylori infection. There was evidence of atrophic gastritis with streaky erythema throughout the body and antrum. Retroflexion of stomach showed evidence of semi-incompetent lower esophageal sphincter. Duodenal mucosa was examined and was grossly normal. At this time, the upper endoscope was retrieved and the patient was turned over for colonoscopy. First, a rectal exam was performed, which was positive for external and internal hemorrhoids. Then, the scope was advanced from the rectum into the cecum documented by appendiceal orifice, ileocecal valve, and right upper quadrant palpation. Quality of prep was good. The patient had one sessile polyp in the ascending colon, roughly measured about 6 mm and removed with hot snare polypectomy technique. There was two other smaller polyps in the transverse colon, removed with cold biopsy forceps technique. The patient had evidence of diverticulosis, [id number] in the left colon with some scattered right-sided diverticulosis. Retroflexion of rectum showed evidence of internal hemorrhoids. SUMMARY OF FINDINGS: 1. Gastritis. 2. Streaky erythema of the body and antrum. 3. Incompetent lower esophageal sphincter. 4. An unusual lesion in the distal esophagus, questionable for hematoma. 5. Inflamed looking upper esophagus status post biopsy. 6. Internal and external hemorrhoids. 7. Diverticulosis. 8. Three colonic polyps removed, see above for details. RECOMMENDATIONS: 1. Follow up biopsies and treat accordingly. 2. The patient might benefit from repeat endoscopy in four to six weeks to evaluate lesion in the distal esophagus. I want to thank, Dr. Almendarez, for this kind referral. Gopal Camejo M.D. DR: MARTIN JOB#: [id number] CC: Isi Almendarez M.D.; Fax#: [phone]
--- NOTE | 2017-06-10 14:32 | Discharge Summary ---
Discharge Summary Hospital Course Date of Admission Jun 07, 2017 at 23:01 Date of Discharge Jun 09, 2017 at 19:14 Admitting Diagnosis CHEST PAIN Reason for Hospitalization: r/o ACS, odynophagia HPI 76y/o male with pmh of HTN, COPD, depression, GERD who presents with chest pain. Pt states that yesterday he developed severe substernal and L sided chest pain. He is unable to clearly characterize it. He does note that it has a somewhat pleuritic component and is also worsened w/ eating. It is not worsened w/ activity. Associated w/ some SOB. Denies f/c, n/v, d/c, dysuria. Also notes some epigastric pain. Pt also c/o difficulty swallowing liquids and solids as well as pain w/ swallowing for a few days to weeks, gradually worsening. Last EGD/colo >10years ago. H/o tobacco use but denies current use. Denies recent COPD exacerbation. Consultations Cardiology Gastroenterology Procedures EGD and colonoscopy 06/08/17 1. Gastritis. 2. Streaky erythema of the body and antrum. 3. Incompetent lower esophageal sphincter. 4. An unusual lesion in the distal esophagus, questionable for hematoma. 5. Inflamed looking upper esophagus status post biopsy. 6. Internal and external hemorrhoids. 7. Diverticulosis. 8. Three colonic polyps removed, see above for details. RECOMMENDATIONS: 1. Follow up biopsies and treat accordingly. 2. The patient might benefit from repeat endoscopy in four to six weeks to evaluate lesion in the distal esophagus. Hospital Course Pt was admitted and seen by cardiology and GI. Pt was ruled out for ACS with serial trop and EKG. Nuclear stress test was unremarkable. Pt also underwent EGD and colonoscopy which showed unusual lesion in distal esophagus, inflamed upper esophagus s/p biopsy. The unsual lesion was not biopsied and plan will be for repeat EGD in a few weeks for possible biopsy. Pt to f/u with GI as outpatient. Prior to d/c, pt HD stable, tolerating PO and ambulating w/o assistance. Discharge Medications Continued Medications: Dexlansoprazole (Dexilant) 60 Mg Shaji.bp 60 MG ORAL DAILY, CAP Docusate Sodium* (Colace*) 100 Mg Capsule 100 MG ORAL DAILY, CAP Escitalopram Oxalate* (Lexapro*) 20 Mg Tablet 20 MG ORAL DAILY, TAB Fluticasone/Salmeterol (Advair 250-50 Diskus) 1 Each Blst.w.dev 1 PUFF INH EVERY 12 HOURS, EA Tramadol Hcl* (Ultram*) 50 Mg Tablet 100 MG ORAL Q6H PRN for For Pain, #30 TAB 0 Refills Discharge Discharge Disposition Patient was discharged to Home (01) Discharge Diagnoses: (1) Odynophagia (2) Chest pain (3) HTN (hypertension) (4) Bradycardia (5) GERD (gastroesophageal reflux disease) (6) Depression (7) COPD (chronic obstructive pulmonary disease) (8) H/o tobacco abuse Jim Harrison M.D. Jun 10, 2017 14:32
--- NOTE | 2017-06-12 06:20 | Diagnostic Imaging Report ---
Indication: chest pain Technique: The study was conducted under the supervision of a routing equipment tender. Adenosine infusion followed by intravenous administration of 30.5 mCi of technetium 99m Myoview was performed. Three plane SPECT imaging of the heart was then performed. A resting study was performed as part of the one-day protocol with 10.7 mCi of technetium 99m myoview injected intravenously at that time. Three plane SPECT imaging of the heart was obtained. Comparison: None Clinical data: 1. Clinical response: Non ischemic 2. Electrocardiographic response: Non ischemic Findings: The myocardial perfusion scan demonstrates left ventricular ejection fraction of 64%. No fixed or reversible perfusion defects are appreciated. No wall motion abnormalities are appreciated. Impression: Negative myocardial perfusion scan
--- NOTE | 2017-06-16 00:55 | Cardiology Report ---
APPROVED REPORT EKG Measurement Heart [id number] Marked sinus bradycardia Right bundle branch block Possible septal infarct, age undetermined Abnormal ECG
--- NOTE | 2017-06-16 00:56 | Cardiology Report ---
APPROVED REPORT EKG Measurement Heart [id number] Sinus bradycardia Right bundle branch block Possible anteroseptal infarct, age undetermined Abnormal ECG
--- NOTE | 2017-06-16 11:07 | Cardiology Report ---
APPROVED REPORT EXAM: Two-dimensional and M-mode echocardiogram with Doppler and color Doppler. INDICATION CAD M-Mode DIMENSIONS IVSd1.0 (0.7-1.1cm)Left Atrium (MM)3.2 (1.6-4.0cm) LVDd4.9 (3.5-5.6cm)Aortic Root3.2 (2.0-3.7cm) PWd1.1 (0.7-1.1cm)Aortic Cusp Exc.1.7 (1.5-2.0cm) LVDs3.8 (2.5-4.0cm) PWs1.0 cm Normal left ventricular chamber size, systolic function and wall motion. Left ventricular ejection fraction estimated to be 55 %. No evidence of ventricular hypertrophy. No evidence of pericardial fat or effusion. All other cardiac chamber sizes are within normal limits. Mild focal aortic valve sclerosis with adequate cusp excursion. Mildly thickened mitral valve leaflets with normal excursion. Mild mitral annulus and aortic root calcification. Pulmonic valve not well visualized. Normal tricuspid valve structure. IVC dilated at 2.5 cm with physiologic collapse. A color flow and spectral Doppler study was performed and revealed: Moderate aortic regurgitation. No mitral regurgitation. Mitral diastolic velocities suggest reduced left ventricular relaxation (Grade I). Mild tricuspid regurgitation. Tricuspid systolic velocities suggests peak right ventricular systolic pressure of 40 mmHg, consistent with mild pulmonary hypertension. No pulmonic regurgitation present.
== END 2017-06-09 19:14 | disposition home or self-care (01) | DRG 254 ==
LOC: EMR 22:15 → 2E 23:01 → EDBEDREQ 23:38 → 2E 06-08 00:50
PROC: 0DBL8ZX Excision of Transverse Colon, Via Natural or Artificial Opening Endoscopic, Diagnostic (ICD-10-PCS; 2017-06-09)
PROC: 0DB58ZX Excision of Esophagus, Via Natural or Artificial Opening Endoscopic, Diagnostic (ICD-10-PCS; principal; 2017-06-09 11:57)
PROC: 0DB68ZX Excision of Stomach, Via Natural or Artificial Opening Endoscopic, Diagnostic (ICD-10-PCS; 2017-06-09 11:57)
PROC: 0DBK8ZX Excision of Ascending Colon, Via Natural or Artificial Opening Endoscopic, Diagnostic (ICD-10-PCS; 2017-06-09 11:57)
DX: R13.10 Dysphagia, unspecified (principal); J44.9 Chronic obstructive pulmonary disease, unspecified; R00.1 Bradycardia, unspecified; R07.89 Other chest pain; M19.90 Unspecified osteoarthritis, unspecified site; I10 Essential (primary) hypertension; K21.9 Gastro-esophageal reflux disease without esophagitis; K63.5 Polyp of colon; D64.9 Anemia, unspecified; K29.40 Chronic atrophic gastritis without bleeding; K64.8 Other hemorrhoids; K64.4 Residual hemorrhoidal skin tags; K57.90 Diverticulosis of intestine, part unspecified, without perforation or abscess without bleeding
CPT/HCPCS: 36415; 71010; 74230; 78452; 80048; 80053; 80061; 82550; 83540; 83550; 83880; 84439; 84443; 84484; 85007; 85025; 85610; 85730; 93005; 93017; 93306; 94003; 94150; 94640; 94664; 94760